=== PATIENT | female | born 2000 | race Caucasian/White ===

== ENCOUNTER 2021-03-30 11:56 | Emergency (ER) | payer MEDICAID ==
[~2021-03-30] VITALS: Ht 157.5 cm; Wt 62.8 kg
[2021-03-30 12:33] LABS: BASOPHILS % (AUTO) 0.6 % (0-1); EOSINOPHILS # (AUTO) 0.3 X10'3 (0-0.9); EOSINOPHILS % (AUTO) 5.8 % (0-6); HEMATOCRIT 43.9 % (35.0-45.0); HEMOGLOBIN 14.5 g/dl (12.0-16.0); MEAN CORPUSCULAR HEMOGLOBIN 28.5 PG (27.0-31.0); MEAN CORPUSCULAR HGB CONC 32.9 g/dL (33.0-36.5); MEAN CORPUSCULAR VOLUME 86.5 FL (78-98); MEAN PLATELET VOLUME 8.1 FL (7.4-10.4); MONOCYTES # (AUTO) 0.5 X10'3 (0-0.9); MONOCYTES % (AUTO) 9.8 % (2-12); NEUTROPHILS # (AUTO) 3.3 X10'3 (1.8-7.7); NEUTROPHILS % (AUTO) 63.8 % (42-75); PLATELET COUNT 265 X10'3 (140-440); RED BLOOD COUNT 5.07 X10'6 (4.20-5.60); RED CELL DISTRIBUTION WIDTH 14.1 % (11.5-14.5); WHITE BLOOD COUNT 5.1 X10'3 (4.5-11.0)
[2021-03-30 12:39] LABS: ALANINE AMINOTRANSFERASE 19 U/L (12-78); ALBUMIN 4.1 G/DL (3.4-5.0); ALBUMIN/GLOBULIN RATIO 1.1 (1.1-1.5); ALKALINE PHOSPHATASE 72 IU/L (46-116); ANION GAP 11 (8-16); ASPARTATE AMINO TRANSFERASE 14 U/L (10-37); BILIRUBIN,TOTAL 0.7 MG/DL (0.1-1.0); BLOOD UREA NITROGEN 9 MG/DL (7-18); BUN/CREATININE RATIO 11.3 (6.6-38.0); CHLORIDE 104 MMOL/L (99-107); GLUCOSE 92 MG/DL (70-104); LIPASE < 50 U/L (73-393); POTASSIUM 3.7 MMOL/L (3.5-5.1); SODIUM 142 MMOL/L (135-145); TOTAL CARBON DIOXIDE 27.3 MMOL/L (24-32); TOTAL PROTEIN 7.7 G/DL (6.4-8.2); eGFR 90 ML/MIN
[2021-03-30 13:39] LABS: URINE HCG NEGATIVE (NEG)
[2021-03-30 13:42] LABS: CLARITY,URINE SLIGHTLY CLOUDY (Clear); COLOR,URINE YELLOW (Yellow); GLUCOSE, URINE NEGATIVE (Neg); KETONES,URINE NEGATIVE (Neg); LEUKOCYTE ESTERASE ,URINE MODERATE (Neg); OCCULT BLOOD,URINE NEGATIVE (Neg); PH,URINE 5.5 (4.8-8.0); PROTEIN,URINE NEGATIVE (Neg); UROBILINOGEN,URINE 0.2 E.U/dL (0.2-1.0)
[2021-03-30 13:49] LABS: NITRITES, URINE NEGATIVE (Neg); UA COLLECTION TYPE CLN CATCH MIDSTREAM
[2021-03-30 13:55] LABS: MUCUS STRANDS FEW /LPF (Neg); SQUAMOUS EPITHELIAL CELL,UR MODERATE /LPF (FEW)
[2021-03-30 13:57] LABS: BACTERIA,URINE FEW /HPF (Neg); RBC,URINE 0-2 /HPF (0-2)
[2021-03-30 14:01] LABS: URINE AMPHETAMINE SCREEN NEGATIVE (Neg); URINE BARBITUATE SCREEN NEGATIVE (Neg); URINE BENZODIAZEPINES SCREEN NEGATIVE (Neg); URINE CANNABINOID SCREEN POSITIVE (Neg); URINE COCAINE SCREEN NEGATIVE (Neg); URINE METHADONE SCREEN NEGATIVE (Neg); URINE OPIATE SCREEN NEGATIVE (Neg); URINE PHENCYCLIDINE SCREEN NEGATIVE (Neg)
[2021-03-30] MEDS ORDERED: normal saline 1000ML IV soln IVB ONE (14:45)
[2021-03-30] MEDS ORDERED: diphenhydrAMINE 50 mg/ml inj IV ONE (14:45)
[2021-03-30] MEDS ORDERED: metoclopramide 5 mg/ml inj IV ONE (14:45)
[2021-03-30] MEDS ORDERED: CefTRIAXone/D5W-Rocephin 1gm 50 ML IV ONE (14:45)
[2021-03-30] MEDS ORDERED: CEPH-585 PO (14:59)
[2021-03-30] MEDS ORDERED: ONDA4TAB12 PO (14:59)
[2021-03-30] MEDS ORDERED: azithromycin 250mg tablet PO ONE (15:00)
[2021-03-30 15:22] VITALS: BP 129/71
== END 2021-03-30 16:03 | disposition home or self-care (01) ==
LOC: ER 11:57
DX: N39.0 Urinary tract infection, site not specified (principal); R11.2 Nausea with vomiting, unspecified; R10.13 Epigastric pain
CPT/HCPCS: 36415; 80053; 80305; 81001; 81025; 83690; 85025; 87088; 96365; 96375; 99284; J0696; J1200; J2765; J7030

== ENCOUNTER 2022-06-18 17:03 | Emergency (ER) | payer MEDICAID ==
[~2022-06-18] VITALS: Ht 154.9 cm; Wt 52.3 kg
[~2022-06-18 17:03] MED LIST: ONDA4TAB12 PO
[2022-06-18 17:49] VITALS: BP 105/65
[2022-06-18] MEDS ORDERED: ondansetron 4mg rapidly disintigrating tab PO ONE (18:25)
[2022-06-18 18:47] LABS: BASOPHILS % (AUTO) 0.2 % (0-1); EOSINOPHILS # (AUTO) 0.5 X10'3 (0-0.9); EOSINOPHILS % (AUTO) 3.5 % (0-6); HEMATOCRIT 42.9 % (35.0-45.0); HEMOGLOBIN 14.3 g/dl (12.0-16.0); LYMPHOCYTES # (AUTO) 0.5 X10'3 (1.1-4.8); LYMPHOCYTES % (AUTO) 3.6 % (21-51); MEAN CORPUSCULAR HEMOGLOBIN 29.4 PG (27.0-31.0); MEAN CORPUSCULAR HGB CONC 33.4 g/dL (33.0-36.5); MEAN CORPUSCULAR VOLUME 88.2 FL (78-98); MEAN PLATELET VOLUME 8.4 FL (7.4-10.4); MONOCYTES # (AUTO) 0.5 X10'3 (0-0.9); MONOCYTES % (AUTO) 3.4 % (2-12); NEUTROPHILS # (AUTO) 12.4 X10'3 (1.8-7.7); NEUTROPHILS % (AUTO) 89.3 % (42-75); PLATELET COUNT 236 X10'3 (140-440); RED BLOOD COUNT 4.87 X10'6 (4.20-5.60); RED CELL DISTRIBUTION WIDTH 14.2 % (11.5-14.5); WHITE BLOOD COUNT 13.9 X10'3 (4.5-11.0)
[2022-06-18 19:00] LABS: ALANINE AMINOTRANSFERASE 17 U/L (12-78); ALBUMIN/GLOBULIN RATIO 1.3 (1.1-1.5); ALKALINE PHOSPHATASE 61 IU/L (46-116); ANION GAP 6 (8-16); ASPARTATE AMINO TRANSFERASE 16 U/L (10-37); BILIRUBIN,TOTAL 0.5 MG/DL (0.1-1.0); BLOOD UREA NITROGEN 6 MG/DL (7-18); CALCIUM 8.8 MG/DL (8.5-10.1); CHLORIDE 105 MMOL/L (99-107); GLUCOSE 88 MG/DL (70-104); MAGNESIUM 1.8 MG/DL (1.5-2.4); POTASSIUM 3.9 MMOL/L (3.5-5.1); SODIUM 139 MMOL/L (135-145); TOTAL CARBON DIOXIDE 27.8 MMOL/L (24-32); TOTAL PROTEIN 7.2 G/DL (6.4-8.2); eGFR > 90 ML/MIN
[2022-06-18] MEDS ORDERED: LIDOcaine Viscous 15ml cup MM ONE (19:05)
[2022-06-18] MEDS ORDERED: mag hydrox/Alum hydrox/simeth 30ml oral suspension PO ONE (19:05)
[2022-06-18] MEDS ORDERED: pantoprazole 40mg Tablet.DR PO ONE (19:05)
[2022-06-18 19:12] LABS: CLARITY,URINE SLIGHTLY CLOUDY (Clear); COLOR,URINE YELLOW (Yellow); GLUCOSE, URINE NEGATIVE (Neg); KETONES,URINE NEGATIVE (Neg); LEUKOCYTE ESTERASE ,URINE MODERATE (Neg); NITRITES, URINE POSITIVE (Neg); OCCULT BLOOD,URINE TRACE-INTACT (Neg); PROTEIN,URINE NEGATIVE (Neg); UROBILINOGEN,URINE 0.2 E.U/dL (0.2-1.0)
[2022-06-18 19:13] LABS: UA COLLECTION TYPE NON-SPECIFIED; URINE HCG NEGATIVE (NEG)
[2022-06-18 19:13] LABS: LIPASE 57 U/L (73-393)
[2022-06-18 19:21] LABS: BACTERIA,URINE 4+ /HPF (Neg); MUCUS STRANDS FEW /LPF (Neg); RBC,URINE 0-2 /HPF (0-2); SQUAMOUS EPITHELIAL CELL,UR FEW /LPF (FEW); TRANSITIONAL EPI CELLS,URINE FEW /HPF
[2022-06-18] MEDS ORDERED: cephalexin 500mg capsule PO ONE (19:40)
[2022-06-18] MEDS ORDERED: iohexol 300mg/ml 100ml inj. ONE (20:25)
[2022-06-18] MEDS ORDERED: ONDA4TAB12 PO (21:37)
[2022-06-18] MEDS ORDERED: CEPH500C2 PO (21:37)
== END 2022-06-18 21:57 | disposition home or self-care (01) ==
LOC: ER 17:04
DX: N30.00 Acute cystitis without hematuria (principal); K29.00 Acute gastritis without bleeding; N94.89 Other specified conditions associated with female genital organs and menstrual cycle; N93.8 Other specified abnormal uterine and vaginal bleeding; Z87.442 Personal history of urinary calculi; Z88.5 Allergy status to narcotic agent; Z79.899 Other long term (current) drug therapy; Z79.1 Long term (current) use of non-steroidal anti-inflammatories (NSAID); Z90.49 Acquired absence of other specified parts of digestive tract
CPT/HCPCS: 36415; 74177; 80053; 81001; 81025; 83690; 83735; 85025; 87077; 87088; 87186; 99285; J3490; Q9967

== ENCOUNTER 2022-06-20 05:33 | Emergency (ER) | payer MEDICAID ==
[~2022-06-20] VITALS: Ht 154.9 cm; Wt 52.3 kg
[~2022-06-20 05:33] MED LIST changes: +CEPH500C2 PO
[2022-06-20 05:37] VITALS: BP 108/58
[2022-06-20] MEDS ORDERED: normal saline 1000ML IV soln IV ONE (05:50)
[2022-06-20] MEDS ORDERED: CefTRIAXone 2gm/D5W 50ml BAG 50 ML IV ONE (05:50)
[2022-06-20] MEDS ORDERED: glycopyrrolate 0.2mg/ml inj IV ONE (07:25)
[2022-06-20] MEDS ORDERED: ketorolac trometh. 30mg/ml inj. IV ONE (07:30)
[2022-06-20 08:09] LABS: BASOPHILS % (AUTO) 0.2 % (0-1); EOSINOPHILS # (AUTO) 0.1 X10'3 (0-0.9); EOSINOPHILS % (AUTO) 1.3 % (0-6); HEMATOCRIT 43.9 % (35.0-45.0); HEMOGLOBIN 14.9 g/dl (12.0-16.0); LYMPHOCYTES # (AUTO) 0.4 X10'3 (1.1-4.8); MEAN CORPUSCULAR HEMOGLOBIN 29.7 PG (27.0-31.0); MEAN CORPUSCULAR VOLUME 87.5 FL (78-98); MEAN PLATELET VOLUME 8.7 FL (7.4-10.4); MONOCYTES # (AUTO) 0.4 X10'3 (0-0.9); MONOCYTES % (AUTO) 4.7 % (2-12); NEUTROPHILS # (AUTO) 7.1 X10'3 (1.8-7.7); NEUTROPHILS % (AUTO) 88.8 % (42-75); PLATELET COUNT 207 X10'3 (140-440); RED BLOOD COUNT 5.02 X10'6 (4.20-5.60); RED CELL DISTRIBUTION WIDTH 13.9 % (11.5-14.5)
[2022-06-20 08:22] LABS: ALANINE AMINOTRANSFERASE 18 U/L (12-78); ALBUMIN 3.9 G/DL (3.4-5.0); ALBUMIN/GLOBULIN RATIO 1.1 (1.1-1.5); ALKALINE PHOSPHATASE 64 IU/L (46-116); ANION GAP 11 (8-16); ASPARTATE AMINO TRANSFERASE 23 U/L (10-37); BILIRUBIN,TOTAL 0.4 MG/DL (0.1-1.0); BLOOD UREA NITROGEN 6 MG/DL (7-18); BUN/CREATININE RATIO 10.7 (6.6-38.0); CALCIUM 8.7 MG/DL (8.5-10.1); CHLORIDE 105 MMOL/L (99-107); CREATININE 0.56 MG/DL (0.40-0.90); GLUCOSE 98 MG/DL (70-104); POTASSIUM 3.3 MMOL/L (3.5-5.1); SODIUM 139 MMOL/L (135-145); TOTAL CARBON DIOXIDE 23.3 MMOL/L (24-32); TOTAL PROTEIN 7.4 G/DL (6.4-8.2); eGFR > 90 ML/MIN
[2022-06-20] MEDS ORDERED: potassium Cl 20 mEq SR tablet PO STA (08:40)
[2022-06-20] MEDS ORDERED: ondansetron/PF 4mg/2ml inj IV ONE (08:40)
[2022-06-20] MEDS ORDERED: DICY10CA88 PO (09:28)
== END 2022-06-20 10:32 | disposition home or self-care (01) ==
LOC: ER 05:34
DX: N39.0 Urinary tract infection, site not specified (principal); R31.9 Hematuria, unspecified; R12 Heartburn; R19.7 Diarrhea, unspecified; Z87.442 Personal history of urinary calculi; Z90.49 Acquired absence of other specified parts of digestive tract; Z88.5 Allergy status to narcotic agent; Z79.1 Long term (current) use of non-steroidal anti-inflammatories (NSAID); Z79.899 Other long term (current) drug therapy
CPT/HCPCS: 36415; 80053; 83605; 83735; 84145; 85025; 87040; 96361; 96365; 96375; 99284; J0696; J1885; J3490; J7030

== ENCOUNTER 2023-01-31 13:48 | Emergency (ER) | payer MEDICAID ==
[~2023-01-31] VITALS: Ht 154.9 cm; Wt 56.0 kg
[~2023-01-31 13:48] MED LIST changes: -CEPH500C2 PO
[2023-01-31 13:53] VITALS: BP 111/80
[2023-01-31] MEDS ORDERED: HYDR-3686 PO (13:57)
[2023-01-31] MEDS ORDERED: LORazepam 1 MG tablet PO ONE (14:00)
== END 2023-01-31 14:33 | disposition home or self-care (01) ==
LOC: ER 13:49
DX: F41.8 Other specified anxiety disorders (principal); F41.9 Anxiety disorder, unspecified; Z87.442 Personal history of urinary calculi; Z88.8 Allergy status to other drugs, medicaments and biological substances; Z79.899 Other long term (current) drug therapy
CPT/HCPCS: 99283

== ENCOUNTER 2023-03-18 13:00 | Inpatient (IN) | payer MEDICAID ==
[~2023-03-18] VITALS: Ht 154.9 cm; Wt 57.9 kg
[2023-03-18 13:51] LABS: BASOPHILS % (AUTO) 0.4 % (0-1); EOSINOPHILS # (AUTO) 0.3 X10'3 (0-0.9); EOSINOPHILS % (AUTO) 3.7 % (0-6); HEMATOCRIT 46.9 % (35.0-45.0); HEMOGLOBIN 15.5 g/dl (12.0-16.0); LYMPHOCYTES % (AUTO) 12.8 % (21-51); MEAN CORPUSCULAR HEMOGLOBIN 29.8 PG (27.0-31.0); MEAN CORPUSCULAR HGB CONC 33.1 g/dL (33.0-36.5); MEAN CORPUSCULAR VOLUME 89.9 FL (78-98); MEAN PLATELET VOLUME 9.1 FL (7.4-10.4); MONOCYTES # (AUTO) 0.6 X10'3 (0-0.9); MONOCYTES % (AUTO) 7.2 % (2-12); NEUTROPHILS # (AUTO) 5.8 X10'3 (1.8-7.7); NEUTROPHILS % (AUTO) 75.9 % (42-75); PLATELET COUNT 246 X10'3 (140-440); RED BLOOD COUNT 5.21 X10'6 (4.20-5.60); RED CELL DISTRIBUTION WIDTH 13.2 % (11.5-14.5); WHITE BLOOD COUNT 7.7 X10'3 (4.5-11.0)
--- NOTE | 2023-03-18 14:00 | NUR ---
PT BELONGINGS PLACED IN LOCKER 23.
[2023-03-18 14:24] LABS: ALANINE AMINOTRANSFERASE 20 U/L (12-78); ALBUMIN 4.3 G/DL (3.4-5.0); ALBUMIN/GLOBULIN RATIO 1.2 (1.1-1.5); ALKALINE PHOSPHATASE 64 IU/L (46-116); ANION GAP 11 (8-16); ASPARTATE AMINO TRANSFERASE 20 U/L (10-37); BILIRUBIN,TOTAL 0.8 MG/DL (0.1-1.0); BLOOD UREA NITROGEN 6 MG/DL (7-18); BUN/CREATININE RATIO 8.1 (10.0-20.0); CALCIUM 9.1 MG/DL (8.5-10.1); CHLORIDE 102 MMOL/L (99-107); CREATININE 0.74 MG/DL (0.40-0.90); GLUCOSE 84 MG/DL (70-104); SODIUM 138 MMOL/L (135-145); TOTAL CARBON DIOXIDE 24.7 MMOL/L (24-32); TOTAL PROTEIN 7.8 G/DL (6.4-8.2); eGFR > 90 ML/MIN
[2023-03-18 14:25] LABS: ETHANOL < 0.010 GM/DL (0.0-0.010)
--- NOTE | 2023-03-18 14:43 | NUR ---
HX of depression and anxiety. At work and having S/I with a plan using a knife. Patient took herself to [facility]. Visual hallucinations. Diet ordered. Need Urine sample. Belongings in Locker 23. Patient is in bed 20.
[2023-03-18 16:07] LABS: URINE HCG NEGATIVE (NEG)
--- NOTE | 2023-03-18 16:12 | NUR ---
Patient gave a urine sample and is now laying in bed. No distress observed. Continue to monitor.
[2023-03-18 16:32] LABS: CLARITY,URINE CLEAR (Clear); COLOR,URINE YELLOW (Yellow); GLUCOSE, URINE NEGATIVE (Neg); KETONES,URINE 15 mg/dl (Neg); LEUKOCYTE ESTERASE ,URINE NEGATIVE (Neg); NITRITES, URINE NEGATIVE (Neg); OCCULT BLOOD,URINE NEGATIVE (Neg); PH,URINE 5.5 (4.8-8.0); PROTEIN,URINE NEGATIVE (Neg); UA COLLECTION TYPE CLN CATCH MIDSTREAM; UROBILINOGEN,URINE 0.2 E.U/dL (0.2-1.0)
[2023-03-18 16:34] LABS: URINE AMPHETAMINE SCREEN NEGATIVE (Neg); URINE BARBITUATE SCREEN NEGATIVE (Neg); URINE BENZODIAZEPINES SCREEN NEGATIVE (Neg); URINE CANNABINOID SCREEN POSITIVE (Neg); URINE COCAINE SCREEN NEGATIVE (Neg); URINE METHADONE SCREEN NEGATIVE (Neg); URINE OPIATE SCREEN NEGATIVE (Neg); URINE PHENCYCLIDINE SCREEN NEGATIVE (Neg)
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
[2023-03-18] MEDS: ibuprofen 200mg tablet PO PRN (20:18)
[2023-03-18] MEDS: traZODone 50mg tablet PO SCH ×2 (20:18→21:18)
--- NOTE | 2023-03-18 20:30 | NUR ---
Pt watching TV. Explained all MD ordered medications 6 rights. Pt in agreement with POC. Pt provided tea and snack.
--- NOTE | 2023-03-18 21:18 | NUR ---
Pt unable to sleep. Trazodone PRN administered. Will follow up with effectiveness.
[2023-03-18] MEDS: ondansetron 4mg rapidly disintigrating tab PO PRN (22:28)
--- NOTE | 2023-03-18 22:37 | NUR ---
Pt reported nausea and vomitted x 1. Zofran 4mg sL q8hrs PRN for Nausea/Vomitting ordered by Provider Elliot Barrera. [facility] administered medication as ordered. [facility] will follow up with effectiveness.
--- NOTE | 2023-03-19 00:23 | NUR ---
Pt sleeping, no distress. No nausea. PRN Nausea and Trazodone 50mg repeat effective. Will continue to monitor.
--- NOTE | 2023-03-19 02:30 | NUR ---
Pt is resting, eyes closed, lying supine. No Distress. Will continue to monitor
--- NOTE | 2023-03-19 04:30 | NUR ---
Pt lying supine, sleeping, eyes closed, no distress noted, will continue to monitor
--- NOTE | 2023-03-19 07:00 | NUR ---
Pt. asleep supine position, no distress noted.
--- NOTE | 2023-03-19 08:30 | NUR ---
Pt. awake up to the bathroom, ambulates well, hygiene products provided. Pt. receptive.
[2023-03-19] MEDS ORDERED: NO HOME MEDS (08:51)
--- NOTE | 2023-03-19 09:00 | NUR ---
Pt. finished her breakfast 50% intake, spoke at length, no SI at this time, reports feeling depressed and hopeless.
--- NOTE | 2023-03-19 10:14 | NUR ---
[facility] at the bedside
--- NOTE | 2023-03-19 11:46 | NUR ---
Pt. asleep, no distress noted. New 5150 recieved.
--- NOTE | 2023-03-19 13:24 | NUR ---
Pt. awake in bed and watching tv, no distress noted.
--- NOTE | 2023-03-19 15:03 | NUR ---
[facility] office called to inform that pt has been accepted at [facility], accepting provider, Walt BUCKLEY.
--- NOTE | 2023-03-19 15:15 | NUR ---
Pt transferred upstairs to [facility], escorted off the unit via w/c accompanied by Wander ROMO and security, all belongings sent with the patient.
[2023-03-19] MEDS ORDERED: acetaminophen 325mg tablet PO PRN ×2 (15:30)
[2023-03-19] MEDS ORDERED: loperamide 2mg capsule PO PRN (15:30)
[2023-03-19] MEDS ORDERED: mag hydrox/Alum hydrox/simeth 30ml oral suspension PO PRN (15:30)
[2023-03-19] MEDS ORDERED: magnesium hydroxide 30ml (MOM) UD suspension PO PRN (15:30)
--- NOTE | 2023-03-19 15:33 | NUR ---
Admit note: [facility] on a 5150 for DTS at 1517 from our ER. Pt continues to endorse suicidal plan is she were to leave the hospital to harm herself with overdosing on pills or using a knife. Pt has history of anxiety, panic disorder, depression.
[2023-03-19 16:04] VITALS: BP 120/69
[2023-03-19 20:00] VITALS: BP 100/63
[2023-03-19] MEDS: traZODone 50mg tablet PO SCH ×2 (21:22→22:30)
--- NOTE | 2023-03-20 04:50 | NUR ---
Nursing Progress Note: Ainsley Problem: Pt [facility] to [facility] today on a 5150 for DTS at 1517 from our ER. Pt continues to endorse suicidal plan is she were to leave the hospital to harm herself with overdosing on pills or using a knife. Pt has history of anxiety, panic disorder and depression. Interventions: Provided 1:1 assessment, Therapeutic conversation & active listening; Medication administration/education/monitoring, Maintained a safe & supportive environment; Clear & simple instructions; Direction & encouragement regarding performance of ADLs; monitored behaviors & maintained clear boundaries; Patient education & monitoring. Response: Pt is received in her room, she is sitting in a chair by the window. Pt is guarded and withdrawn to self. Everything is going wrong, Im gonna lose my job and my living situation. I hate my job but I need money to live. Pt is in a very dark place regarding her life. I have no one to help, my family is in [place] and they dont want me around. Pt denies SI/HI/AVH. Pt denies anxiety. Im just depressed. Pt did go into group room and worked on a puzzle just to not isolate. Pt is medication compliant and took her repeat Trazodone. Monitor for safety. Plan: Pt requires stabilization and safe therapeutic environment and interruption of current crisis.
[2023-03-20 08:00] VITALS: BP 102/51
[2023-03-20 10:36] LABS: CHOL/HDL RATIO 2.1 (0.00-4.99); CHOLESTEROL 139 MG/DL (0-200); HDL CHOLESTEROL 67 MG/DL (35-60); HEMOGLOBIN A1C 4.7 % (4.5-6.2); LDL CHOLESTEROL 56 MG/DL (50-100); TRIGLYCERIDES 25 MG/DL (20-135)
[2023-03-20] MEDS ORDERED: hydrOXYzine 25 MG tablet PO PRN (14:50)
[2023-03-20] MEDS: venlafaxine XR 75mg capsule (Q24H) PO SCH (16:07)
--- NOTE | 2023-03-20 16:12 | NUR ---
Nursing Progress Note: Ainsley Problem: [facility] today on a 5150 for DTS at 1517 from our ER. Pt continues to endorse suicidal plan is she were to leave the hospital to harm herself with overdosing on pills or using a knife. Pt has history of anxiety, panic disorder and depression. Interventions: Provided 1:1 assessment, Therapeutic conversation & active listening; Medication administration/education/monitoring, Maintained a safe & supportive environment; Clear & simple instructions; Direction & encouragement regarding performance of ADLs; monitored behaviors & maintained clear boundaries; Patient education & monitoring. Response: Pt. received asleep and awoke to attend breakfast. Pt. endorses SI with a plan if I wasnt here, Im depressed she denies HI, AH, VH and presents as down casted with poor eye contact. Pt. spent most of the shift in bed both sleeping and lying awake. She ate all meals in the community room with cohorts, but keeps to herself socially isolating from others. Pt. presents as disheveled and refused clean scrubs. Pt. reports her LBM was 3 days ago; PRN MOM refused by pt. 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 Addendum: 03/20/23 at 1715 by Wander Garcia) RN DESIGN ENGINEERING MANAGER documentation: I have reviewed and agree with all interventions, assessments performed and documented by the DESIGN ENGINEERING MANAGER.
[2023-03-20 19:18] VITALS: BP 100/58
[2023-03-20] MEDS: prazosin 1mg capsule PO SCH (21:13)
[2023-03-20] MEDS: traZODone 50mg tablet PO SCH (21:13)
--- NOTE | 2023-03-21 05:12 | NUR ---
Nursing Progress Note: Ainsley Problem: [facility] to [facility] today on a 5150 for DTS at 1517 from our ER. Pt continues to endorse suicidal plan is she were to leave the hospital to harm herself with overdosing on pills or using a knife. Pt has history of anxiety, panic disorder and depression. Interventions: Provided 1:1 assessment, Therapeutic conversation & active listening; Medication administration/education/monitoring, Maintained a safe & supportive environment; Clear & simple instructions; Direction & encouragement regarding performance of ADLs; monitored behaviors & maintained clear boundaries; Patient education & monitoring. Response: Received pt in dining room, she was finishing her dinner. Pt is calm and pleasant and cooperative. Pt appears more visible on unit and socializing with several other peers. Pt still reports depression but is slightly less tonight. Its hard to give it a number. Pt has requested her cell phone to get contact numbers. Pt is scared about losing her housing and job by being in here. 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 Pt is encouraged to journal and other activities to distract her from her worries. Pt is medication compliant with Atarax 50 mg for anxiety. Elda been chewing on my nails all day. Pt said she did have a small hard BM today, declined MOM. Elda been eating more today so I should start having more regular BM now. Monitor for safety. Plan: Pt requires stabilization and safe therapeutic environment and interruption of current crisis.
[2023-03-21 08:00] VITALS: BP 113/57
[2023-03-21] MEDS: venlafaxine XR 75mg capsule (Q24H) PO SCH (08:24)
[2023-03-21] MEDS: ondansetron 4mg rapidly disintigrating tab PO PRN (15:31)
--- NOTE | 2023-03-21 17:02 | NUR ---
Nursing Progress Note: Ainsley Problem: [facility] to [facility] today on a 5150 for DTS at 1517 from our ER. Pt continues to endorse suicidal plan is she were to leave the hospital to harm herself with overdosing on pills or using a knife. Pt has history of anxiety, panic disorder and depression. Interventions: Provided 1:1 assessment, Therapeutic conversation & active listening; Medication administration/education/monitoring, Maintained a safe & supportive environment; Clear & simple instructions; Direction & encouragement regarding performance of ADLs; monitored behaviors & maintained clear boundaries; Patient education & monitoring. Response: Received Pt in bed sleeping w/o distress at the beginning of this shift. Pt woke and took her AM med, but did not eat breakfast and returned to sleeping. Pt woke and c/o feeling dry mouth and groggy. Pt educated r/t Atarax and other meds she is taking. Pt encouraged to hydrate and eat. Pt routinely smokes marijuana at home which she states helps with sleep and appetite. Pt rested and attempted to eat lunch. She ate some rice and vegetables and c/o nausea. Pt given crackers and broth and Zofran PRN. Pt able to eat the broth and crackers. She got up to community room and socialized a bit and watched TV. Pt is depressed and endorses SI but denies HI/AH/VHs at this time. Plan: Pt requires stabilization and safe therapeutic environment and interruption of current crisis.
[2023-03-21 20:00] VITALS: BP 109/68
[2023-03-21] MEDS: prazosin 1mg capsule PO SCH (20:30)
[2023-03-21] MEDS: traZODone 50mg tablet PO SCH (20:30)
--- NOTE | 2023-03-22 00:37 | NUR ---
Nursing Progress Note: Ainsley Problem: Pt [facility] to [facility] today on a 5150 for DTS at 1517 from our ER. Pt continues to endorse suicidal plan is she were to leave the hospital to harm herself with overdosing on pills or using a knife. Pt has history of anxiety, panic disorder and depression. Interventions: Provided 1:1 assessment, Therapeutic conversation & active listening; Medication administration/education/monitoring, Maintained a safe & supportive environment; Clear & simple instructions; Direction & encouragement regarding performance of ADLs; monitored behaviors & maintained clear boundaries; Patient education & monitoring. Response: Pt sitting in chair by the window at start of shift. She denies depression or SI she said her major c/o is Anxiety. Her financial situation is bleak and causing her anxiety. 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 Being here she is missing work days and is afraid she can't pay rent, will lose her housing and become homeless. She lacks a support system. She is estranged from family claims she has not spoken to her mother for 3 years. Stayed with some friends for awhile "But they did not want me there they only let me stay out of pity." Pt wants to be discharged [facility] But is having difficulty at work because of stress and anxiety. It seems doubtful pt will be successful if Discharged too early. Pt ate 75 % of dinner, came to snack and ate two sandwiches. No c/o Nausea like experienced on dayshift. Plan: Pt requires stabilization and safe therapeutic environment and interruption of current crisis. Addendum: 03/22/23 at 0154 by Brenda Sandoval RN Pt did not eat 2 sandwiches at snack That was a different pt. Not clear what she did eat.
[2023-03-22 07:12] VITALS: BP 107/67
[2023-03-22] MEDS: venlafaxine XR 75mg capsule (Q24H) PO SCH (09:07)
--- NOTE | 2023-03-22 16:57 | NUR ---
Nursing Progress Note: Ainsley Problem: [facility] to [facility] today on a 5150 for DTS at 1517 from our ER. Pt continues to endorse suicidal plan is she were to leave the hospital to harm herself with overdosing on pills or using a knife. Pt has history of anxiety, panic disorder and depression. Interventions: Provided 1:1 assessment, Therapeutic conversation & active listening; Medication administration/education/monitoring, Maintained a safe & supportive environment; Clear & simple instructions; Direction & encouragement regarding performance of ADLs; monitored behaviors & maintained clear boundaries; Patient education & monitoring. Response: Received patient sleeping at shift change. Pt woke prior to breakfast and sat in community room. Pt is pleasant on greeting and cooperative with care and medication. Pt reports LBM 2 days ago. Pt continues to decline interventions. Pt currently denies SI, but expresses feelings of anxiety and depression "no pill is going to change my life." Pt is worried about not having a job when she gets out, but has a difficult time concentration r/t increased in anxiety. Pt has no support system locally or afar. Pt reports not speaking to her mother in three years, reports "she is huge stressor." Pt isolated to her room most of the shift, listening to her headphones, was seen in morning playing a board game with female peer. Pt describes her life as "overwhelming." Plan: Pt requires stabilization and safe therapeutic environment and interruption of current crisis.
[2023-03-22 20:00] VITALS: BP 102/65
[2023-03-22] MEDS: prazosin 1mg capsule PO SCH (21:17)
[2023-03-22] MEDS: traZODone 50mg tablet PO SCH (21:17)
--- NOTE | 2023-03-23 01:04 | NUR ---
Nursing Progress Note: Ainsley Problem: [facility] to [facility] today on a 5150 for DTS at 1517 from our ER. Pt continues to endorse suicidal plan is she were to leave the hospital to harm herself with overdosing on pills or using a knife. Pt has history of anxiety, panic disorder and depression. Interventions: Provided 1:1 assessment, Therapeutic conversation & active listening; Medication administration/education/monitoring, Maintained a safe & supportive environment; Clear & simple instructions; Direction & encouragement regarding performance of ADLs; monitored behaviors & maintained clear boundaries; Patient education & monitoring. Response: Pt in group room at start of shift. Pt has made a friendship with another female pt on the floor. She spent the entire shift until she went to bed talking and sitting with the other pt. Her affect, in sharp contrast to last NOC shift, is bright. She said she will be discharged on Wednesday. She feels if she goes back to work she will be able to make enough money to pay her rent and avoid being homeless. She said she feels hopeful. She denied MH symptoms took HS meds went to sleep without any PRNs. Plan: Pt requires stabilization and safe therapeutic environment and interruption of current crisis.
[2023-03-23] MEDS: venlafaxine XR 75mg capsule (Q24H) PO SCH (07:40)
[2023-03-23 08:00] VITALS: BP 101/74
[2023-03-23] MEDS: ibuprofen 200mg tablet PO PRN ×2 (09:14→19:10)
--- NOTE | 2023-03-23 15:15 | NUR ---
Nursing Progress Note: Problem : Pt admitted to [facility] today on a 5150 for DTS at 1517 from our ER. Pt continues to endorse suicidal plan is she were to leave the hospital to harm herself with overdosing on pills or using a knife. Pt has history of anxiety, panic disorder and depression. Interventions : Introduced self and established rapport, maintained a safe and supportive environment, ensured contract for safety, provided active listening and positive encouragement, and maintained a safe and supportive environment. Response : Received pt. awake sitting up in bed listening to headphones at the beginning of the shift, this keno writer/runner introduced self and established rapport. 1:1 was completed at bedside, pt. presents as cooperative and anxious. She denies any S/I, H/I, A/V/YEH, and no delusional statements were made. Pt. 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 Pt. c/o back pain and PRN Tylenol was administered, however pt. later requested PRN Motrin and this was was administered with effectiveness. Pt. also c/o constipation and was administered PRN MOM and prune juice with some effectiveness, will endorse to Noc shift and continue to monitor. Pt. remained up throughout the day interacting appropriately with peers. Plan : Pt. continues to require a safe and supportive environment.
[2023-03-23] MEDS ORDERED: HYDR-3686 PO (16:08)
[2023-03-23] MEDS ORDERED: VENL75CA61 PO (16:08)
[2023-03-23] MEDS ORDERED: TRAZ-251 PO (16:08)
[2023-03-23] MEDS ORDERED: PRAZ1CAP5 PO (16:08)
[2023-03-23 20:00] VITALS: BP 109/79
[2023-03-23] MEDS: traZODone 50mg tablet PO SCH (20:00)
[2023-03-23] MEDS: prazosin 1mg capsule PO SCH (20:01)
--- NOTE | 2023-03-24 04:24 | NUR ---
Nursing Progress Note: Problem : Pt [facility] to [facility] today on a 5150 for DTS at 1517 from our ER. Pt continues to endorse suicidal plan is she were to leave the hospital to harm herself with overdosing on pills or using a knife. Pt has history of anxiety, panic disorder and depression. Interventions : Introduced self and established rapport, maintained a safe and supportive environment, ensured contract for safety, provided active listening and positive encouragement, and maintained a safe and supportive environment. Response : Upon turn of shift noted patient sitting on bed. Appears to isolating to room. Complained of back pain. Gave PRN Ibuprofen with success. Compliant with HS meds. Denies SI, HI, AH, and VH. Shared about her unpleasant experience at work concerning the pain in her back. Will continue to monitor. Plan : Pt. continues to require a safe and supportive environment.
[2023-03-24 07:33] VITALS: BP 105/66
[2023-03-24] MEDS: venlafaxine XR 75mg capsule (Q24H) PO SCH (08:09)
--- NOTE | 2023-03-24 09:16 | NUR ---
Initial: Pt admit w/ SI PO ~53% avg initial regular diet meals meeting estimated needs. LBM 03/23 daily small/hard BM's past 5 days received PRN MoM 03/[address] d/w RN routine bowel regimen if MD agreeable; per RN pt to be discharge today. No nutrition interventions at this time. Addendum: 03/24/23 at [address] Amended: Links added.
--- NOTE | 2023-03-24 15:13 | NUR ---
Patient discharged at 1330. Patient was excited about leaving and getting back to her things. Patient signed all discharge paperwork paperwork and left unit with all belongings. Patient was reminded of follow up appointment with KHADRA Garcia at 1400 at [facility] [address] [place] [address]. Nurse double check patient had the right pharmacy and was aware of which medications to garbage pick up man.
== END 2023-03-24 13:26 | disposition home or self-care (01) | DRG 751 ==
LOC: ER 13:00 → ED HOLD 03-19 14:00 → ADULT MH 03-19 15:18
PROVIDERS: ADMIT Psychiatry & Neurology Psychiatry; ATTEND Psychiatry & Neurology Psychiatry
DX: F33.2 Major depressive disorder, recurrent severe without psychotic features (principal); R45.851 Suicidal ideations; Z20.822 Contact with and (suspected) exposure to COVID-19; F41.0 Panic disorder [episodic paroxysmal anxiety]; F41.1 Generalized anxiety disorder; M54.50 Low back pain, unspecified; F43.10 Post-traumatic stress disorder, unspecified; G89.29 Other chronic pain; J45.909 Unspecified asthma, uncomplicated; Z62.810 Personal history of physical and sexual abuse in childhood; Z79.899 Other long term (current) drug therapy; Z87.442 Personal history of urinary calculi; Z91.51 Personal history of suicidal behavior; Z91.52 Personal history of nonsuicidal self-harm; Z88.8 Allergy status to other drugs, medicaments and biological substances; Z90.49 Acquired absence of other specified parts of digestive tract; Z72.0 Tobacco use
CPT/HCPCS: 36415; 80053; 80061; 80305; 80320; 81003; 81025; 83036; 85025; 87081; 87811; 99285; Q0177

== ENCOUNTER 2024-01-13 14:05 | Emergency (ER) | payer MEDICAID ==
[~2024-01-13] VITALS: Ht 167.6 cm; Wt 63.6 kg
[~2024-01-13 14:05] MED LIST changes: +HYDR-3686 PO; +NO HOME MEDS; -ONDA4TAB12 PO; +PRAZ1CAP5 PO; +TRAZ-251 PO; +VENL75CA61 PO
[2024-01-13] MEDS ORDERED: LORazepam 2 mg/ml vial IM ONE (14:40)
[2024-01-13] MEDS ORDERED: MIDAZolam 1mg/ml 10ml vial IM ONE (14:45)
[2024-01-13] MEDS: haloperidol lactate 5mg/ml inj IM ONE (14:51)
[2024-01-13] MEDS: diphenhydrAMINE 50 mg/ml inj IM ONE (14:51)
[2024-01-13] MEDS: midazolam 1 mg/ML 2ml injection IM ONE (14:57)
[2024-01-13 16:10] LABS: BASOPHILS % (AUTO) 0.3 % (0-1); EOSINOPHILS # (AUTO) 0.5 X10'3 (0-0.9); EOSINOPHILS % (AUTO) 7.3 % (0-6); HEMATOCRIT 42.2 % (35.0-45.0); LYMPHOCYTES # (AUTO) 0.9 X10'3 (1.1-4.8); LYMPHOCYTES % (AUTO) 12.7 % (21-51); MEAN CORPUSCULAR HEMOGLOBIN 30.2 PG (27.0-31.0); MEAN CORPUSCULAR HGB CONC 33.2 g/dL (33.0-36.5); MEAN PLATELET VOLUME 8.1 FL (7.4-10.4); MONOCYTES # (AUTO) 0.4 X10'3 (0-0.9); MONOCYTES % (AUTO) 5.2 % (2-12); NEUTROPHILS # (AUTO) 5.5 X10'3 (1.8-7.7); NEUTROPHILS % (AUTO) 74.5 % (42-75); PLATELET COUNT 263 X10'3 (140-440); RED BLOOD COUNT 4.63 X10'6 (4.20-5.60); RED CELL DISTRIBUTION WIDTH 13.9 % (11.5-14.5); WHITE BLOOD COUNT 7.4 X10'3 (4.5-11.0)
[2024-01-13 16:27] LABS: URINE HCG NEGATIVE (NEG)
[2024-01-13 16:31] LABS: BILIRUBIN,URINE SMALL (Neg); CLARITY,URINE CLOUDY (Clear); COLOR,URINE AMBER (Yellow); GLUCOSE, URINE NEGATIVE (Neg); KETONES,URINE NEGATIVE (Neg); LEUKOCYTE ESTERASE ,URINE NEGATIVE (Neg); OCCULT BLOOD,URINE LARGE (Neg); PH,URINE 5.5 (4.8-8.0); PROTEIN,URINE 100 mg/dl (Neg); UROBILINOGEN,URINE 0.2 E.U/dL (0.2-1.0)
[2024-01-13 16:40] LABS: ALBUMIN 3.7 G/DL (3.4-5.0); ANION GAP 11 (8-16); BLOOD UREA NITROGEN 9 MG/DL (7-18); CALCIUM 9.1 MG/DL (8.5-10.1); CHLORIDE 105 MMOL/L (99-107); CREATININE 0.82 MG/DL (0.40-0.90); GLUCOSE 120 MG/DL (70-104); POTASSIUM 3.4 MMOL/L (3.5-5.1); SODIUM 140 MMOL/L (135-145); TOTAL CARBON DIOXIDE 23.8 MMOL/L (24-32); eCRCL 98 ML/MIN; eGFR 85 ML/MIN
[2024-01-13 16:48] LABS: URINE AMPHETAMINE SCREEN NEGATIVE (Neg); URINE BARBITUATE SCREEN NEGATIVE (Neg); URINE BENZODIAZEPINES SCREEN POSITIVE (Neg); URINE CANNABINOID SCREEN POSITIVE (Neg); URINE COCAINE SCREEN NEGATIVE (Neg); URINE METHADONE SCREEN NEGATIVE (Neg); URINE OPIATE SCREEN NEGATIVE (Neg); URINE PHENCYCLIDINE SCREEN NEGATIVE (Neg)
[2024-01-13 16:49] LABS: ETHANOL < 10 MG/DL (<10)
[2024-01-13 16:52] LABS: NITRITES, URINE NEGATIVE (Neg)
[2024-01-13 16:53] LABS: UA COLLECTION TYPE NON-SPECIFIED
[2024-01-13 16:54] LABS: COARSE GRANULAR CAST 0-3 /LPF (NEGATIVE); MUCUS STRANDS FEW /LPF (Neg); SQUAMOUS EPITHELIAL CELL,UR MANY /LPF (FEW)
[2024-01-13 16:55] LABS: AMORPHOUS URATES 4+
[2024-01-13 16:56] LABS: WBC CLUMPS,URINE FEW /HPF (NEGATIVE); WBC,URINE 30-50 /HPF (0-4)
[2024-01-13 16:57] LABS: RBC,URINE 50-100 /HPF (0-2)
[2024-01-13 16:58] LABS: BACTERIA,URINE FEW /HPF (Neg); TRANSITIONAL EPI CELLS,URINE FEW /HPF
[2024-01-13 17:42] LABS: FREE T4 (FREE THYROXINE) 0.74 NG/DL (0.73-1.40)
[2024-01-13] MEDS ORDERED: VENL-191 PO (22:06)
[2024-01-13] MEDS ORDERED: ATOM80CA3 PO (22:08)
[2024-01-13] MEDS ORDERED: TRAZ-256 PO (22:09)
[2024-01-13] MEDS ORDERED: PRAZ1CAP5 PO (22:10)
[2024-01-13] MEDS ORDERED: VENL37.586 PO (23:08)
[2024-01-13] MEDS: traZODone 50mg tablet PO SCH (23:09)
[2024-01-14 05:12] VITALS: BP 100/60; PULSE 110; RESP 16; TEMP 98.3; O2SAT 99
[2024-01-14] MEDS: atomoxetine 40 MG capsule PO SCH (08:00)
[2024-01-14] MEDS ORDERED: venlafaxine 37.5mg tablet PO SCH (08:00)
[2024-01-14] MEDS: venlafaxine XR 37.5mg cap (Q24H) PO SCH (10:05)
[2024-01-14] MEDS: LORazepam 1 MG tablet PO ONE (10:05)
[2024-01-14] MEDS ORDERED: prazosin 1mg capsule PO SCH (21:00)
== END 2024-01-14 11:05 ==
LOC: ER 14:06
DX: R45.851 Suicidal ideations (principal); Z20.822 Contact with and (suspected) exposure to COVID-19; Z88.8 Allergy status to other drugs, medicaments and biological substances; Z79.899 Other long term (current) drug therapy; Z90.49 Acquired absence of other specified parts of digestive tract
CPT/HCPCS: 36415; 80048; 80305; 80320; 81001; 81025; 84439; 84443; 85025; 87811; 96372; 99285; J1200; J1630; J2250; C1758

== ENCOUNTER → 2024-03-02 | Outpatient (CLI) | payer MEDICAID ==
[~2024-03-02] MED LIST changes: +ATOM80CA3 PO; -HYDR-3686 PO; -NO HOME MEDS; -TRAZ-251 PO; +TRAZ-256 PO; +VENL37.586 PO; -VENL75CA61 PO
== END | disposition home or self-care (01) ==
LOC: RAD 13:14
PROVIDERS: ATTEND Nurse Practitioner Psychiatric/Mental Health
DX: I45.10 Unspecified right bundle-branch block (principal); Z79.899 Other long term (current) drug therapy
CPT/HCPCS: 93005